=== PATIENT | female | born 1980 | race Caucasian/White ===

== ENCOUNTER 2017-06-05 21:27 | Emergency (ER) | payer MEDICAID ==
[~2017-06-05] VITALS: Ht 152.4 cm; Wt 60.0 kg
[~2017-06-05 21:27] MED LIST: ALBU8.5H8 IH; BECL7.3A INH; BENZ200C53 PO; GUAI120015 PO; HYDR-569 PO; METH500T PO; ONDA4TAB12 PO; ONDA4TAB6 PO; ONDA8TAB9 PO
[2017-06-05] MEDS ORDERED: ipratropium/albuterol 3ml nebule NEB ONE (21:55)
[2017-06-05] MEDS ORDERED: benzonatate 100mg capsule PO ONE (21:55)
[2017-06-05] MEDS ORDERED: BENZ-16 PO (23:07)
[2017-06-05 23:16] VITALS: BP 108/67
[2017-06-05] MEDS ORDERED: TAM75C PO (23:25)
== END 2017-06-05 23:18 | disposition home or self-care (01) ==
LOC: ER 21:27
DX: R05 Cough (principal); R50.9 Fever, unspecified; R09.81 Nasal congestion; J44.9 Chronic obstructive pulmonary disease, unspecified; F17.200 Nicotine dependence, unspecified, uncomplicated; Z88.1 Allergy status to other antibiotic agents; Z79.899 Other long term (current) drug therapy
CPT/HCPCS: 71045; 87502; 87503; 94640; 94760; 99285

== ENCOUNTER 2017-06-08 17:27 | Emergency (ER) | payer MEDICAID ==
[~2017-06-08] VITALS: Ht 154.9 cm; Wt 59.0 kg
[~2017-06-08 17:27] MED LIST changes: +BENZ-16 PO; +TAM75C PO
[2017-06-08] MEDS ORDERED: albuterol 2.5 MG/3 ML nebule NEB ONE (17:40)
[2017-06-08] MEDS ORDERED: ipratropium/albuterol 3ml nebule NEB ONE (17:40)
[2017-06-08] MEDS ORDERED: GUAI10SY2 PO (18:26)
[2017-06-08 19:02] VITALS: BP 134/70
== END 2017-06-08 19:03 | disposition home or self-care (01) ==
LOC: ER 17:27
DX: J44.9 Chronic obstructive pulmonary disease, unspecified (principal); J11.1 Influenza due to unidentified influenza virus with other respiratory manifestations; Z88.1 Allergy status to other antibiotic agents; Z79.899 Other long term (current) drug therapy
CPT/HCPCS: 94640; 94760; 99283; 99284

== ENCOUNTER 2017-09-13 18:25 | Emergency (ER) | payer MEDICAID ==
[~2017-09-13] VITALS: Ht 152.4 cm; Wt 61.4 kg
[~2017-09-13 18:25] MED LIST changes: -BENZ-16 PO; -TAM75C PO
[2017-09-13 19:03] LABS: BASOPHILS # (AUTO) 0.2 X10'3 (0-0.2); BASOPHILS % (AUTO) 1.4 % (0-1); EOSINOPHILS # (AUTO) 0.4 X10'3 (0-0.9); EOSINOPHILS % (AUTO) 3.3 % (0-6); HEMATOCRIT 39.8 % (35.0-45.0); HEMOGLOBIN 14.1 g/dl (12.0-16.0); LYMPHOCYTES # (AUTO) 3.4 X10'3 (1.1-4.8); LYMPHOCYTES % (AUTO) 28.2 % (21-51); MEAN CORPUSCULAR HEMOGLOBIN 31.5 PG (27.0-31.0); MEAN CORPUSCULAR HGB CONC 35.3 % (33.0-36.5); MEAN CORPUSCULAR VOLUME 89.3 FL (78-98); MONOCYTES # (AUTO) 0.5 X10'3 (0-0.9); MONOCYTES % (AUTO) 4.5 % (2-12); NEUTROPHILS # (AUTO) 7.5 X10'3 (1.8-7.7); NEUTROPHILS % (AUTO) 62.6 % (42-75); PLATELET COUNT 260 X10'3 (140-440); RED BLOOD COUNT 4.46 X10'6 (4.20-5.60); WHITE BLOOD COUNT 11.9 X10'3 (4.5-11.0)
[2017-09-13 19:23] LABS: ALANINE AMINOTRANSFERASE 28 U/L (12-78); ALBUMIN 3.7 G/DL (3.4-5.0); ALBUMIN/GLOBULIN RATIO 1.1 (1.1-1.5); ALKALINE PHOSPHATASE 68 IU/L (46-116); AMYLASE 73 U/L (25-115); ANION GAP 11 (8-16); ASPARTATE AMINO TRANSFERASE 17 U/L (10-37); BILIRUBIN,TOTAL 0.2 MG/DL (0.1-1.0); BLOOD UREA NITROGEN 15 MG/DL (7-18); BUN/CREATININE RATIO 18.3 (6.6-38.0); CALCIUM 8.7 MG/DL (8.5-10.1); CHLORIDE 103 MMOL/L (99-107); CREATININE 0.82 MG/DL (0.40-0.90); GLUCOSE 111 MG/DL (70-104); LIPASE 183 U/L (73-393); POTASSIUM 3.7 MMOL/L (3.5-5.1); SODIUM 140 MMOL/L (135-145); TOTAL CARBON DIOXIDE 25.7 MMOL/L (24-32); TOTAL PROTEIN 7.2 G/DL (6.4-8.2); eGFR 78 ML/MIN
[2017-09-13 19:42] LABS: CLARITY,URINE CLEAR (Clear); COLOR,URINE YELLOW (Yellow); GLUCOSE, URINE NEGATIVE (Neg); KETONES,URINE NEGATIVE (Neg); LEUKOCYTE ESTERASE ,URINE NEGATIVE (Neg); NITRITES, URINE NEGATIVE (Neg); OCCULT BLOOD,URINE NEGATIVE (Neg); PROTEIN,URINE NEGATIVE (Neg); URINE HCG NEGATIVE (NEG); UROBILINOGEN,URINE 0.2 E.U/dL (0.2-1.0)
[2017-09-13 19:45] LABS: UA COLLECTION TYPE CLN CATCH MIDSTREAM
[2017-09-13 21:19] VITALS: BP 108/59
[2017-09-13] MEDS ORDERED: HYDR-3965 PO (22:06)
[2017-09-13] MEDS ORDERED: ONDA4TAB12 PO (22:06)
== END 2017-09-13 22:50 | disposition home or self-care (01) ==
LOC: ER 18:25
DX: K80.50 Calculus of bile duct without cholangitis or cholecystitis without obstruction (principal); J44.9 Chronic obstructive pulmonary disease, unspecified; F17.210 Nicotine dependence, cigarettes, uncomplicated; Z88.8 Allergy status to other drugs, medicaments and biological substances; Z79.899 Other long term (current) drug therapy
CPT/HCPCS: 36415; 76700; 80053; 81003; 81025; 82150; 83690; 85025; 85610; 99285

== ENCOUNTER 2017-12-03 12:07 | Emergency (ER) | payer MEDICAID ==
[~2017-12-03] VITALS: Ht 152.4 cm; Wt 62.0 kg
[2017-12-03 12:08] VITALS: BP 126/72
== END 2017-12-03 13:44 | disposition home or self-care (01) ==
LOC: ER 12:07
DX: M79.604 Pain in right leg (principal); J44.9 Chronic obstructive pulmonary disease, unspecified; Z87.891 Personal history of nicotine dependence; Z88.1 Allergy status to other antibiotic agents
CPT/HCPCS: 73502; 73564; 93971; 99284

== ENCOUNTER 2018-03-28 17:32 | Emergency (ER) | payer MEDICAID ==
[~2018-03-28] VITALS: Ht 152.4 cm; Wt 68.0 kg
[~2018-03-28 17:32] MED LIST changes: +HYDR-4383 PO; -HYDR-569 PO
[2018-03-28 18:35] LABS: URINE HCG NEGATIVE (NEG)
[2018-03-28 18:35] LABS: ALANINE AMINOTRANSFERASE 60 U/L (12-78); ALBUMIN 3.7 G/DL (3.4-5.0); ALBUMIN/GLOBULIN RATIO 1.1 (1.1-1.5); ALKALINE PHOSPHATASE 83 IU/L (46-116); ANION GAP 11 (8-16); ASPARTATE AMINO TRANSFERASE 19 U/L (10-37); BILIRUBIN,TOTAL 0.2 MG/DL (0.1-1.0); BLOOD UREA NITROGEN 10 MG/DL (7-18); BUN/CREATININE RATIO 17.5 (6.6-38.0); CALCIUM 8.7 MG/DL (8.5-10.1); CHLORIDE 102 MMOL/L (99-107); CREATININE 0.57 MG/DL (0.40-0.90); GLUCOSE 98 MG/DL (70-104); POTASSIUM 3.9 MMOL/L (3.5-5.1); PROTHROMBIN TIME 10.1 SECONDS (9.0-12.0); SODIUM 139 MMOL/L (135-145); TOTAL PROTEIN 7.2 G/DL (6.4-8.2); eGFR > 90 ML/MIN
[2018-03-28 18:47] LABS: HEMATOCRIT 36.1 % (35.0-45.0); HEMOGLOBIN 12.9 g/dl (12.0-16.0); RED BLOOD COUNT 4.09 X10'6 (4.20-5.60)
[2018-03-28 18:48] LABS: BASOPHILS # (AUTO) 0.1 X10'3 (0-0.2); BASOPHILS % (AUTO) 0.7 % (0-1); EOSINOPHILS # (AUTO) 0.2 X10'3 (0-0.9); EOSINOPHILS % (AUTO) 1.9 % (0-6); LYMPHOCYTES # (AUTO) 2.5 X10'3 (1.1-4.8); LYMPHOCYTES % (AUTO) 20.4 % (21-51); MEAN CORPUSCULAR HEMOGLOBIN 31.6 PG (27.0-31.0); MEAN CORPUSCULAR HGB CONC 35.9 % (33.0-36.5); MEAN CORPUSCULAR VOLUME 88.2 FL (78-98); MEAN PLATELET VOLUME 8.5 FL (7.4-10.4); MONOCYTES # (AUTO) 0.6 X10'3 (0-0.9); MONOCYTES % (AUTO) 4.8 % (2-12); NEUTROPHILS # (AUTO) 8.6 X10'3 (1.8-7.7); NEUTROPHILS % (AUTO) 72.2 % (42-75); PLATELET COUNT 313 X10'3 (140-440); RED CELL DISTRIBUTION WIDTH 12.1 % (11.5-14.5)
[2018-03-28 18:50] LABS: CLARITY,URINE CLEAR (Clear); COLOR,URINE YELLOW (Yellow); GLUCOSE, URINE NEGATIVE (Neg); KETONES,URINE NEGATIVE (Neg); LEUKOCYTE ESTERASE ,URINE NEGATIVE (Neg); NITRITES, URINE NEGATIVE (Neg); OCCULT BLOOD,URINE TRACE-INTACT (Neg); PH,URINE 6.5 (4.8-8.0); PROTEIN,URINE NEGATIVE (Neg); UROBILINOGEN,URINE 0.2 E.U/dL (0.2-1.0)
[2018-03-28 18:53] LABS: UA COLLECTION TYPE CLN CATCH MIDSTREAM
[2018-03-28 18:57] LABS: LIPASE 189 U/L (73-393)
[2018-03-28 18:58] LABS: RBC,URINE 0-2 /HPF (0-2); SQUAMOUS EPITHELIAL CELL,UR FEW /LPF (FEW); WBC,URINE 0-4 /HPF (0-4)
[2018-03-28 18:59] LABS: BACTERIA,URINE 1+ /HPF (Neg)
[2018-03-28 19:07] VITALS: BP 107/86
[2018-03-28] MEDS ORDERED: ondansetron 4mg rapidly disintigrating tab PO ONE (19:15)
[2018-03-28] MEDS ORDERED: ONDA4TAB9 PO (21:23)
[2018-03-28] MEDS ORDERED: IBUP-1984 PO (21:23)
== END 2018-03-28 21:29 | disposition home or self-care (01) ==
LOC: ER 17:33
DX: K80.50 Calculus of bile duct without cholangitis or cholecystitis without obstruction (principal); J44.9 Chronic obstructive pulmonary disease, unspecified; Z88.1 Allergy status to other antibiotic agents; Z87.440 Personal history of urinary (tract) infections; Z98.890 Other specified postprocedural states
CPT/HCPCS: 36415; 76700; 80053; 81001; 81025; 83690; 85025; 85610; 99284

== ENCOUNTER 2019-03-06 19:46 | Emergency (ER) | payer MEDICAID ==
[~2019-03-06] VITALS: Ht 152.4 cm; Wt 68.0 kg
[2019-03-06 19:50] VITALS: BP 124/73
[2019-03-06] MEDS ORDERED: dexamethasone 0.5 mg/5ml unit-dose oral solution PO STA (20:15)
[2019-03-06] MEDS ORDERED: AZIT250T83 PO (20:18)
[2019-03-06] MEDS ORDERED: dexamethasone sod phosphate 10mg/ml inj PO ONE (20:30)
== END 2019-03-06 20:35 | disposition home or self-care (01) ==
LOC: ER 19:47
DX: J02.9 Acute pharyngitis, unspecified (principal); J44.9 Chronic obstructive pulmonary disease, unspecified; Z98.890 Other specified postprocedural states; Z88.3 Allergy status to other anti-infective agents; Z79.899 Other long term (current) drug therapy
CPT/HCPCS: 99283; J1100; J8540

== ENCOUNTER 2019-03-28 19:15 | Emergency (ER) | payer MEDICAID ==
[~2019-03-28] VITALS: Ht 152.4 cm; Wt 69.0 kg
[2019-03-28 19:48] LABS: URINE HCG NEGATIVE (NEG)
[2019-03-28 19:49] LABS: CLARITY,URINE CLEAR (Clear); COLOR,URINE YELLOW (Yellow); GLUCOSE, URINE NEGATIVE (Neg); KETONES,URINE NEGATIVE (Neg); LEUKOCYTE ESTERASE ,URINE NEGATIVE (Neg); NITRITES, URINE NEGATIVE (Neg); OCCULT BLOOD,URINE MODERATE (Neg); PROTEIN,URINE NEGATIVE (Neg); UROBILINOGEN,URINE 0.2 E.U/dL (0.2-1.0)
[2019-03-28 19:51] LABS: UA COLLECTION TYPE CLN CATCH MIDSTREAM
[2019-03-28 19:53] LABS: BASOPHILS # (AUTO) 0.1 X10'3 (0-0.2); BASOPHILS % (AUTO) 1.1 % (0-1); EOSINOPHILS # (AUTO) 0.3 X10'3 (0-0.9); EOSINOPHILS % (AUTO) 2.5 % (0-6); HEMATOCRIT 37.2 % (35.0-45.0); HEMOGLOBIN 12.9 g/dl (12.0-16.0); LYMPHOCYTES % (AUTO) 24.9 % (21-51); MEAN CORPUSCULAR HEMOGLOBIN 29.9 PG (27.0-31.0); MEAN CORPUSCULAR HGB CONC 34.6 g/dL (33.0-36.5); MEAN CORPUSCULAR VOLUME 86.5 FL (78-98); MEAN PLATELET VOLUME 8.7 FL (7.4-10.4); MONOCYTES # (AUTO) 0.7 X10'3 (0-0.9); MONOCYTES % (AUTO) 5.5 % (2-12); NEUTROPHILS # (AUTO) 7.9 X10'3 (1.8-7.7); PLATELET COUNT 289 X10'3 (140-440); RED CELL DISTRIBUTION WIDTH 15.1 % (11.5-14.5)
[2019-03-28 20:05] LABS: ALANINE AMINOTRANSFERASE 21 U/L (12-78); ALBUMIN 3.9 G/DL (3.4-5.0); ALBUMIN/GLOBULIN RATIO 1.1 (1.1-1.5); ALKALINE PHOSPHATASE 88 IU/L (46-116); ANION GAP 11 (8-16); ASPARTATE AMINO TRANSFERASE 13 U/L (10-37); BILIRUBIN,TOTAL 0.2 MG/DL (0.1-1.0); BLOOD UREA NITROGEN 12 MG/DL (7-18); BUN/CREATININE RATIO 15.2 (6.6-38.0); CALCIUM 8.6 MG/DL (8.5-10.1); CHLORIDE 103 MMOL/L (99-107); CREATININE 0.79 MG/DL (0.40-0.90); LIPASE 144 U/L (73-393); POTASSIUM 3.3 MMOL/L (3.5-5.1); SODIUM 139 MMOL/L (135-145); TOTAL CARBON DIOXIDE 25.5 MMOL/L (24-32); TOTAL PROTEIN 7.4 G/DL (6.4-8.2); eGFR 81 ML/MIN
[2019-03-28 20:06] LABS: GLUCOSE 124 MG/DL (70-104)
[2019-03-28 20:06] LABS: BACTERIA,URINE 1+ /HPF (Neg); MUCUS STRANDS NONE SEEN /LPF (Neg); RBC,URINE 0-2 /HPF (0-2); SQUAMOUS EPITHELIAL CELL,UR MANY /LPF (FEW); WBC,URINE 0-4 /HPF (0-4)
[2019-03-28] MEDS ORDERED: HYDROcodone/acetaminophen 10/325mg tab PO ONE (22:30)
[2019-03-28] MEDS ORDERED: ondansetron 4mg rapidly disintigrating tab PO ONE (22:30)
[2019-03-28] MEDS ORDERED: ibuprofen tablet 400 MG TABLET PO ONE (22:40)
[2019-03-28 22:42] VITALS: BP 113/53
[2019-03-28] MEDS ORDERED: IBUP-1984 PO (23:19)
[2019-03-28] MEDS ORDERED: ONDA4TAB6 PO (23:19)
== END 2019-03-28 23:29 | disposition home or self-care (01) ==
LOC: ER 19:15
DX: R10.11 Right upper quadrant pain (principal); R11.0 Nausea; J44.9 Chronic obstructive pulmonary disease, unspecified; Z86.69 Personal history of other diseases of the nervous system and sense organs; Z98.890 Other specified postprocedural states; Z88.1 Allergy status to other antibiotic agents; Z79.899 Other long term (current) drug therapy
CPT/HCPCS: 36415; 74176; 76700; 80053; 81001; 81025; 83690; 85025; 99284

== ENCOUNTER 2019-10-19 15:26 | Emergency (ER) | payer MEDICAID ==
[~2019-10-19] VITALS: Ht 154.9 cm; Wt 75.0 kg
[2019-10-19 16:56] LABS: CLARITY,URINE CLEAR (Clear); COLOR,URINE YELLOW (Yellow); GLUCOSE, URINE NEGATIVE (Neg); KETONES,URINE 40 mg/dl (Neg); LEUKOCYTE ESTERASE ,URINE NEGATIVE (Neg); NITRITES, URINE NEGATIVE (Neg); OCCULT BLOOD,URINE SMALL (Neg); PROTEIN,URINE NEGATIVE (Neg); UA COLLECTION TYPE CLN CATCH MIDSTREAM; URINE HCG NEGATIVE (NEG); UROBILINOGEN,URINE 0.2 E.U/dL (0.2-1.0)
[2019-10-19 16:56] LABS: BASOPHILS # (AUTO) 0.1 X10'3 (0-0.2); BASOPHILS % (AUTO) 0.9 % (0-1); EOSINOPHILS # (AUTO) 0.2 X10'3 (0-0.9); EOSINOPHILS % (AUTO) 1.3 % (0-6); HEMATOCRIT 38.8 % (35.0-45.0); HEMOGLOBIN 13.1 g/dl (12.0-16.0); LYMPHOCYTES # (AUTO) 3.2 X10'3 (1.1-4.8); LYMPHOCYTES % (AUTO) 21.9 % (21-51); MEAN CORPUSCULAR HEMOGLOBIN 29.8 PG (27.0-31.0); MEAN CORPUSCULAR HGB CONC 33.8 g/dL (33.0-36.5); MEAN CORPUSCULAR VOLUME 88.2 FL (78-98); MEAN PLATELET VOLUME 8.6 FL (7.4-10.4); MONOCYTES # (AUTO) 0.7 X10'3 (0-0.9); MONOCYTES % (AUTO) 4.7 % (2-12); NEUTROPHILS # (AUTO) 10.4 X10'3 (1.8-7.7); NEUTROPHILS % (AUTO) 71.2 % (42-75); PLATELET COUNT 332 X10'3 (140-440); RED CELL DISTRIBUTION WIDTH 13.9 % (11.5-14.5); WHITE BLOOD COUNT 14.6 X10'3 (4.5-11.0)
[2019-10-19 17:02] LABS: BACTERIA,URINE 1+ /HPF (Neg); MUCUS STRANDS NONE SEEN /LPF (Neg); SQUAMOUS EPITHELIAL CELL,UR MODERATE /LPF (FEW); WBC,URINE NONE SEEN /HPF (0-4)
[2019-10-19] MEDS ORDERED: normal saline 1000ML IV soln IVB ONE (17:10)
[2019-10-19 17:13] LABS: ALANINE AMINOTRANSFERASE 40 U/L (12-78); ALBUMIN 3.9 G/DL (3.4-5.0); ALKALINE PHOSPHATASE 100 IU/L (46-116); ANION GAP 10 (8-16); ASPARTATE AMINO TRANSFERASE 30 U/L (10-37); BILIRUBIN,TOTAL 0.3 MG/DL (0.1-1.0); BLOOD UREA NITROGEN 14 MG/DL (7-18); BUN/CREATININE RATIO 14.3 (6.6-38.0); CALCIUM 9.3 MG/DL (8.5-10.1); CHLORIDE 103 MMOL/L (99-107); CREATININE 0.98 MG/DL (0.40-0.90); GLUCOSE 89 MG/DL (70-104); POTASSIUM 3.7 MMOL/L (3.5-5.1); SODIUM 139 MMOL/L (135-145); TOTAL CARBON DIOXIDE 25.8 MMOL/L (24-32); TOTAL PROTEIN 7.9 G/DL (6.4-8.2); eGFR 63 ML/MIN
[2019-10-19 18:12] VITALS: BP 123/74
== END 2019-10-19 18:10 | disposition home or self-care (01) ==
LOC: ER 15:26
DX: R42 Dizziness and giddiness (principal); E86.0 Dehydration; J45.909 Unspecified asthma, uncomplicated; J44.9 Chronic obstructive pulmonary disease, unspecified; Z86.69 Personal history of other diseases of the nervous system and sense organs; Z87.440 Personal history of urinary (tract) infections; Z88.1 Allergy status to other antibiotic agents; Z79.899 Other long term (current) drug therapy
CPT/HCPCS: 36415; 80053; 81001; 81025; 85025; 96360; 99283; J7030

== ENCOUNTER 2020-09-15 12:06 | Emergency (ER) | payer MEDICAID ==
[~2020-09-15] VITALS: Ht 152.4 cm; Wt 66.2 kg
[2020-09-15 13:07] LABS: CLARITY,URINE CLEAR (Clear); COLOR,URINE STRAW (Yellow); GLUCOSE, URINE NEGATIVE (Neg); KETONES,URINE NEGATIVE (Neg); LEUKOCYTE ESTERASE ,URINE NEGATIVE (Neg); NITRITES, URINE NEGATIVE (Neg); OCCULT BLOOD,URINE MODERATE (Neg); PH,URINE 6.5 (4.8-8.0); PROTEIN,URINE NEGATIVE (Neg); UA COLLECTION TYPE CLN CATCH MIDSTREAM; UROBILINOGEN,URINE 0.2 E.U/dL (0.2-1.0)
[2020-09-15 13:08] LABS: URINE HCG NEGATIVE (NEG)
[2020-09-15 13:14] LABS: BACTERIA,URINE NONE SEEN /HPF (Neg); RBC,URINE 0-2 /HPF (0-2); SQUAMOUS EPITHELIAL CELL,UR FEW /LPF (FEW); WBC,URINE NONE SEEN /HPF (0-4)
[2020-09-15] MEDS ORDERED: ibuprofen tablet 400 MG TABLET PO ONE (14:25)
[2020-09-15 14:34] VITALS: BP 133/75
[2020-09-15] MEDS ORDERED: medroxyprogesterone acet. 2.5mg tablet PO SCH (14:35)
[2020-09-15 14:44] LABS: BASOPHILS # (AUTO) 0.1 X10'3 (0-0.2); BASOPHILS % (AUTO) 0.9 % (0-1); EOSINOPHILS # (AUTO) 0.2 X10'3 (0-0.9); EOSINOPHILS % (AUTO) 2.4 % (0-6); HEMATOCRIT 37.7 % (35.0-45.0); HEMOGLOBIN 12.8 g/dl (12.0-16.0); LYMPHOCYTES # (AUTO) 2.7 X10'3 (1.1-4.8); LYMPHOCYTES % (AUTO) 29.9 % (21-51); MEAN CORPUSCULAR HEMOGLOBIN 30.5 PG (27.0-31.0); MEAN CORPUSCULAR HGB CONC 34.1 g/dL (33.0-36.5); MEAN CORPUSCULAR VOLUME 89.5 FL (78-98); MEAN PLATELET VOLUME 8.9 FL (7.4-10.4); MONOCYTES # (AUTO) 0.6 X10'3 (0-0.9); MONOCYTES % (AUTO) 6.5 % (2-12); NEUTROPHILS # (AUTO) 5.5 X10'3 (1.8-7.7); NEUTROPHILS % (AUTO) 60.3 % (42-75); PLATELET COUNT 309 X10'3 (140-440); RED BLOOD COUNT 4.21 X10'6 (4.20-5.60); RED CELL DISTRIBUTION WIDTH 13.4 % (11.5-14.5); WHITE BLOOD COUNT 9.1 X10'3 (4.5-11.0)
[2020-09-15] MEDS ORDERED: medroxyprogesterone acet. 2.5mg tablet PO STA (15:58)
[2020-09-15] MEDS ORDERED: MEDR5TAB4 PO (16:21)
== END 2020-09-15 16:29 | disposition home or self-care (01) ==
LOC: ER 12:06
DX: N93.9 Abnormal uterine and vaginal bleeding, unspecified (principal); R10.31 Right lower quadrant pain; J44.9 Chronic obstructive pulmonary disease, unspecified; Z86.69 Personal history of other diseases of the nervous system and sense organs; Z87.440 Personal history of urinary (tract) infections; Z98.890 Other specified postprocedural states; Z88.1 Allergy status to other antibiotic agents; Z79.899 Other long term (current) drug therapy
CPT/HCPCS: 36415; 81001; 81025; 84702; 85025; 99283

== ENCOUNTER 2020-10-20 22:11 | Emergency (ER) | payer MEDICAID ==
[~2020-10-20] VITALS: Ht 152.4 cm; Wt 66.0 kg
[~2020-10-20 22:11] MED LIST changes: +MEDR5TAB4 PO
[2020-10-21] MEDS ORDERED: DEXA6TAB PO (00:09)
[2020-10-21] MEDS ORDERED: DOXY-1 PO (00:09)
[2020-10-21 00:27] VITALS: BP 126/70
== END 2020-10-21 00:29 | disposition home or self-care (01) ==
LOC: ER 22:12 → EDBD 22:12 → MERGE 22:12 → ER 10-21 00:29
DX: U07.1 COVID-19 (principal); R05 Cough; Z88.1 Allergy status to other antibiotic agents; Z79.2 Long term (current) use of antibiotics
CPT/HCPCS: 71045; 87635; 99284; C9803; 99283

== ENCOUNTER 2021-07-16 10:06 | Emergency (ER) | payer MEDICAID ==
[~2021-07-16] VITALS: Ht 152.4 cm; Wt 70.5 kg
[~2021-07-16 10:06] MED LIST changes: +ALBU8.5H17 IH; -ALBU8.5H8 IH; +DEXA6TAB PO
[2021-07-16 10:08] VITALS: BP 123/80
[2021-07-16] MEDS ORDERED: ibuprofen tablet 400 MG TABLET PO ONE (12:45)
[2021-07-16] MEDS ORDERED: CYCL-1 PO (13:16)
== END 2021-07-16 13:34 | disposition home or self-care (01) ==
LOC: ER 10:06
DX: S43.402A Unspecified sprain of left shoulder joint, initial encounter (principal); X58.XXXA Exposure to other specified factors, initial encounter; Y93.89 Activity, other specified; Y92.89 Other specified places as the place of occurrence of the external cause; Y99.8 Other external cause status
CPT/HCPCS: 71046; 99283

== ENCOUNTER 2022-05-24 18:53 | Emergency (ER) | payer MEDICAID ==
[~2022-05-24] VITALS: Ht 154.9 cm; Wt 65.9 kg
[~2022-05-24 18:53] MED LIST changes: +CYCL-1 PO
[2022-05-24 19:11] VITALS: BP 109/63
== END 2022-05-24 21:58 | disposition left against medical advice (07) ==
LOC: ER 18:54
DX: R50.9 Fever, unspecified (principal); M79.10 Myalgia, unspecified site; J44.9 Chronic obstructive pulmonary disease, unspecified; Z87.448 Personal history of other diseases of urinary system; Z98.890 Other specified postprocedural states; Z88.1 Allergy status to other antibiotic agents; Z88.8 Allergy status to other drugs, medicaments and biological substances; Z79.899 Other long term (current) drug therapy; Z79.1 Long term (current) use of non-steroidal anti-inflammatories (NSAID); Z79.2 Long term (current) use of antibiotics
CPT/HCPCS: 99281

== ENCOUNTER 2022-06-07 08:41 | Day surgery (SDC) | payer MEDICAID ==
[2022-06-02 11:41] LABS: BASOPHILS # (AUTO) 0.1 X10'3 (0-0.2); BASOPHILS % (AUTO) 0.5 % (0-1); EOSINOPHILS # (AUTO) 0.1 X10'3 (0-0.9); LYMPHOCYTES # (AUTO) 2.3 X10'3 (1.1-4.8); LYMPHOCYTES % (AUTO) 22.6 % (21-51); MEAN CORPUSCULAR HEMOGLOBIN 30.3 PG (27.0-31.0); MEAN CORPUSCULAR HGB CONC 33.6 g/dL (33.0-36.5); MEAN CORPUSCULAR VOLUME 90.2 FL (78-98); MEAN PLATELET VOLUME 8.9 FL (7.4-10.4); MONOCYTES # (AUTO) 0.6 X10'3 (0-0.9); MONOCYTES % (AUTO) 6.1 % (2-12); NEUTROPHILS # (AUTO) 7.1 X10'3 (1.8-7.7); NEUTROPHILS % (AUTO) 69.8 % (42-75); PRE OP HEMATOCRIT 40.7 % (35.0-45.0); PRE OP HEMOGLOBIN 13.7 g/dL (12.0-16.0); PRE OP PLATELET COUNT 361 X10'3 (140-440); RED BLOOD COUNT 4.52 X10'6 (4.20-5.60); RED CELL DISTRIBUTION WIDTH 13.7 % (11.5-14.5)
[2022-06-02 11:51] LABS: ALBUMIN 4.1 G/DL (3.4-5.0); ALBUMIN/GLOBULIN RATIO 1.2 (1.1-1.5); ALKALINE PHOSPHATASE 69 IU/L (46-116); BLOOD UREA NITROGEN 8 MG/DL (7-18); CALCIUM 8.9 MG/DL (8.5-10.1); CHLORIDE 104 MMOL/L (99-107); CREATININE 0.73 MG/DL (0.40-0.90); PRE OP ALT 15 U/L (30-65); PRE OP ANION GAP 7 (8-16); PRE OP AST 10 U/L (10-37); PRE OP BILIRUB, TOTAL 0.4 MG/DL (0.0-1.0); PRE OP GLUCOSE 91 MG/DL (70-104); PRE OP POTASSIUM 3.9 MMOL/L (3.4-5.1); PRE OP SODIUM 140 MMOL/L (135-145); TOTAL CARBON DIOXIDE 29.1 MMOL/L (24-32); TOTAL PROTEIN 7.4 G/DL (6.4-8.2); eGFR 88 ML/MIN
[2022-06-02 12:09] LABS: HCG SERUM QL NEGATIVE
[2022-06-07] VITALS (8 sets, daily range): BP systolic 98–113; BP diastolic 60–71
[~2022-06-07] VITALS: Ht 154.9 cm; Wt 65.5 kg
[~2022-06-07 08:41] MED LIST changes: -ALBU8.5H17 IH; -BECL7.3A INH; -BENZ200C53 PO; -CYCL-1 PO; -DEXA6TAB PO; -GUAI120015 PO; +HYDR-3717 PO; -HYDR-4383 PO; -MEDR5TAB4 PO; -METH500T PO; -ONDA4TAB12 PO; -ONDA4TAB6 PO; -ONDA8TAB9 PO; +albuterol 2.5 MG/3 ML nebule NEB ONE; +ceFAZolin inj. 2,000 MG in dextrose 5%-water 100 ML IV ONE; +famotidine 20mg tablet PO ONE; +meperidine/PF 25mg/ml syringe IV PRN; +morphine 2 MG/ML inj. syringe IV PRN; +morphine 4 MG/ML inj SYRINge IV PRN; +ondansetron/PF 4mg/2ml inj IV PRN; +proCHLORperazine 10 MG/2 ml inj IV PRN; +ringers solution, lacted 1,000 ML IV SCH; +scopolamine 1mg/72 hr patch TD SCH
[2022-06-07] MEDS ORDERED: aprepitant 40mg capsule PO ONE (10:17)
[2022-06-07] MEDS ORDERED: dexamethasone sod phosphate 10mg/ml inj ONE (10:20)
[2022-06-07] MEDS ORDERED: sevoflurane 250ml liquid IH ONE (10:20)
[2022-06-07] MEDS ORDERED: LIDOcaine 1% 30ml preserv. free vial ONE (10:21)
[2022-06-07] MEDS ORDERED: BUPIVAcaine 0.5% inj/PF 30 ML ONE (10:21)
[2022-06-07] MEDS ORDERED: fentaNYL/PF 50MCG/1 ML 2ML syringe ONE (10:28)
[2022-06-07] MEDS ORDERED: midazolam 1 mg/ML 2ml injection ONE (10:29)
[2022-06-07] MEDS ORDERED: propofol inj 20 ML IV ONE (10:30)
[2022-06-07] MEDS ORDERED: LIDOcaine 2% (20mg/ml) 5ml vial ONE (10:30)
[2022-06-07] MEDS ORDERED: rocuronium 10mg/ml inj IV ONE (10:30)
[2022-06-07] MEDS ORDERED: ondansetron/PF 4mg/2ml inj ONE (10:39)
[2022-06-07] MEDS ORDERED: LIDOcaine 1% 30ml preserv. free vial IJ ONE (11:04)
[2022-06-07] MEDS ORDERED: BUPIVAcaine 0.5% inj/PF 30 ml vial IJ ONE (11:06)
[2022-06-07] MEDS ORDERED: neostigmine methylsulfate 1 MG/ML 10ml vial ONE (11:23)
[2022-06-07] MEDS ORDERED: glycopyrrolate 0.2mg/ml inj ONE (11:24)
--- NOTE | 2022-06-07 11:33 | NUR ---
Received from OR via [facility], accompanied by Anesthesiologist and report given by [facility] Anesthesiologist. PATIENT WAKING UP, DENIES PAIN, V/S WNL, PIV 20G LEFT FOREARM, RIGHT BREAST DRESSING C/D/I with breast binder. Addendum: 06/07/22 at 1150 by Jersey Moore RN Amended: Links added.
--- NOTE | 2022-06-07 12:33 | NUR ---
ALL DISCHARGE CRITERIA HAS BEEN MET. VSS, PAIN AT A TOLERABLE LEVEL, VOIDING AND ABLE TO SAFELY AMBULATE AND TRANSFER SELF. IV TAKEN OUT WITHOUT ANY COMPLICATIONS. ALL DISCHARGE INSTRUCTIONS COVERED WITH PATIENT AND ALL QUESTIONS ANSWERED. PATIENT TAKEN OUT VIA WHEELCHAIR WITH ALL BELONGINGS TO PERSONAL VEHICLE WHERE FRIEND DROVE PATIENT HOME. Addendum: 06/07/22 at 1244 by Jersey Moore RN Amended: Links added.
== END 2022-06-07 12:33 | disposition home or self-care (01) ==
LOC: PAS 08:41
PROVIDERS: ATTEND Surgery
DX: N60.11 Diffuse cystic mastopathy of right breast (principal); N60.81 Other benign mammary dysplasias of right breast; J44.9 Chronic obstructive pulmonary disease, unspecified; K21.9 Gastro-esophageal reflux disease without esophagitis; F41.9 Anxiety disorder, unspecified; Z87.891 Personal history of nicotine dependence; Z88.1 Allergy status to other antibiotic agents; Z79.899 Other long term (current) drug therapy; Z87.440 Personal history of urinary (tract) infections; Z98.890 Other specified postprocedural states
CPT/HCPCS: 19301; 36415; 80053; 82948; 84703; 85025; J0690; J1100; J2175; J2250; J2405; J2704; J2710; J3010; J3490; J7030; J7060; J7120; J8501; S0020; Z7506; Z7508; Z7512; A4618; A6449; A7000

== ENCOUNTER 2022-10-25 10:23 | Emergency (ER) | payer MEDICAID ==
[~2022-10-25] VITALS: Ht 152.4 cm; Wt 75.0 kg
[~2022-10-25 10:23] MED LIST changes: -albuterol 2.5 MG/3 ML nebule NEB ONE; -ceFAZolin inj. 2,000 MG in dextrose 5%-water 100 ML IV ONE; -famotidine 20mg tablet PO ONE; -meperidine/PF 25mg/ml syringe IV PRN; -morphine 2 MG/ML inj. syringe IV PRN; -morphine 4 MG/ML inj SYRINge IV PRN; -ondansetron/PF 4mg/2ml inj IV PRN; -proCHLORperazine 10 MG/2 ml inj IV PRN; -ringers solution, lacted 1,000 ML IV SCH; -scopolamine 1mg/72 hr patch TD SCH
[2022-10-25 10:27] VITALS: BP 130/94
[2022-10-25] MEDS ORDERED: CefTRIAXone 500MG IM Kit w/LIDOcaine IM STA (11:22)
[2022-10-25] MEDS ORDERED: FLUC200T PO (11:31)
[2022-10-25] MEDS ORDERED: LEVO-65 PO (11:31)
== END 2022-10-25 12:15 | disposition home or self-care (01) ==
LOC: ER 10:23
DX: N73.0 Acute parametritis and pelvic cellulitis (principal); A64 Unspecified sexually transmitted disease; B37.31 Acute candidiasis of vulva and vagina; J44.9 Chronic obstructive pulmonary disease, unspecified; Z87.440 Personal history of urinary (tract) infections; Z98.890 Other specified postprocedural states; Z88.1 Allergy status to other antibiotic agents; Z79.899 Other long term (current) drug therapy
CPT/HCPCS: 36415; 87491; 87591; 96372; 99284; J0696; Q0112; 99283

== ENCOUNTER 2022-12-25 10:23 | Emergency (ER) | payer MEDICAID ==
[~2022-12-25] VITALS: Ht 152.4 cm; Wt 81.8 kg
[~2022-12-25 10:23] MED LIST changes: +FLUC200T PO
[2022-12-25 11:08] VITALS: BP 131/80; PULSE 83; RESP 16; TEMP 98.9; O2SAT 98
[2022-12-25] MEDS ORDERED: AMOX-580 PO (14:28)
== END 2022-12-25 14:53 | disposition home or self-care (01) ==
LOC: ER 10:24
DX: H66.91 Otitis media, unspecified, right ear (principal); J06.9 Acute upper respiratory infection, unspecified; J44.9 Chronic obstructive pulmonary disease, unspecified; Z86.69 Personal history of other diseases of the nervous system and sense organs; Z98.890 Other specified postprocedural states; Z88.1 Allergy status to other antibiotic agents; Z79.899 Other long term (current) drug therapy
CPT/HCPCS: 99283

== ENCOUNTER 2024-07-03 15:54 | Emergency (ER) | payer MEDICAID ==
[~2024-07-03] VITALS: Ht 154.9 cm; Wt 80.5 kg
[2024-07-03 16:26] VITALS: TEMP 98
[2024-07-03 19:48] LABS: BILIRUBIN,URINE NEGATIVE (Neg); CLARITY,URINE CLEAR (Clear); COLOR,URINE YELLOW (Yellow); GLUCOSE, URINE NEGATIVE (Neg); KETONES,URINE NEGATIVE (Neg); LEUKOCYTE ESTERASE ,URINE SMALL (Neg); NITRITES, URINE NEGATIVE (Neg); OCCULT BLOOD,URINE SMALL (Neg); PROTEIN,URINE NEGATIVE (Neg); UROBILINOGEN,URINE 0.2 E.U/dL (0.2-1.0)
[2024-07-03 19:54] LABS: BASOPHILS # (AUTO) 0.1 X10'3 (0-0.2); BASOPHILS % (AUTO) 0.9 % (0-1); EOSINOPHILS # (AUTO) 0.1 X10'3 (0-0.9); EOSINOPHILS % (AUTO) 1.2 % (0-6); HEMATOCRIT 40.7 % (35.0-45.0); LYMPHOCYTES # (AUTO) 1.8 X10'3 (1.1-4.8); LYMPHOCYTES % (AUTO) 25.2 % (21-51); MEAN CORPUSCULAR HEMOGLOBIN 30.1 PG (27.0-31.0); MEAN CORPUSCULAR HGB CONC 34.4 g/dL (33.0-36.5); MEAN CORPUSCULAR VOLUME 87.7 FL (78-98); MONOCYTES # (AUTO) 0.6 X10'3 (0-0.9); MONOCYTES % (AUTO) 8.3 % (2-12); NEUTROPHILS # (AUTO) 4.5 X10'3 (1.8-7.7); NEUTROPHILS % (AUTO) 64.4 % (42-75); PLATELET COUNT 273 X10'3 (140-440); RED BLOOD COUNT 4.64 X10'6 (4.20-5.60); RED CELL DISTRIBUTION WIDTH 13.9 % (11.5-14.5)
[2024-07-03 19:55] LABS: UA COLLECTION TYPE CLN CATCH MIDSTREAM
[2024-07-03 20:07] LABS: BACTERIA,URINE 4+ /HPF (Neg); SQUAMOUS EPITHELIAL CELL,UR FEW /LPF (FEW)
[2024-07-03 20:11] LABS: ALANINE AMINOTRANSFERASE 31 U/L (12-78); ALBUMIN 3.9 G/DL (3.4-5.0); ALKALINE PHOSPHATASE 107 IU/L (46-116); ANION GAP 5 (8-16); ASPARTATE AMINO TRANSFERASE 15 U/L (10-37); BILIRUBIN,TOTAL 0.5 MG/DL (0.1-1.0); BLOOD UREA NITROGEN 10 MG/DL (7-18); BUN/CREATININE RATIO 16.1 (10.0-20.0); CALCIUM 8.7 MG/DL (8.5-10.1); CHLORIDE 102 MMOL/L (99-107); CREATININE 0.62 MG/DL (0.40-0.90); GLUCOSE 95 MG/DL (70-104); POTASSIUM 3.9 MMOL/L (3.5-5.1); SODIUM 137 MMOL/L (135-145); TOTAL CARBON DIOXIDE 30.5 MMOL/L (24-32); eCRCL 88 ML/MIN; eGFR > 90 ML/MIN
[2024-07-03 20:15] LABS: BETA HCG,QUANTITATIVE < 1.0 mIU/ml; LIPASE 28 U/L (16-77)
[2024-07-03] MEDS: ondansetron 4mg rapidly disintigrating tab PO ONE (20:25)
[2024-07-03] MEDS ORDERED: ONDA-245 PO (20:27)
[2024-07-03 21:00] VITALS: BP 126/82; PULSE 86; RESP 18; O2SAT 99
== END 2024-07-03 21:01 | disposition home or self-care (01) ==
LOC: ER 15:54
DX: R11.2 Nausea with vomiting, unspecified (principal); R19.7 Diarrhea, unspecified; J44.9 Chronic obstructive pulmonary disease, unspecified; Z88.1 Allergy status to other antibiotic agents; Z98.890 Other specified postprocedural states
CPT/HCPCS: 36415; 76700; 80053; 81001; 83690; 84702; 85025; 87088; 99284